=== PATIENT | male | born 1990 | race American Indian/Alaskan Native ===

== ENCOUNTER 2016-10-07 18:53 | Emergency (ER) | payer MEDICARE ==
[2016-10-07 18:54] VITALS: BMI 27.2
[2016-10-07 19:13] VITALS: PULSE 76; RESP 20; TEMP 97.6; O2SAT 99
[2016-10-07] MEDS ORDERED: Oxycodone/Acetaminophen 5/325 mg Tab ONE (19:29)
[2016-10-07] MEDS ORDERED: Oxycodone/Acetaminophen 5/325 mg Tab PO STA (19:29)
--- NOTE | 2016-10-07 20:21 | ED PDOC ---
HPI: Back Time Seen by Provider: 10/07/16 19:14 Chief Complaint (Nursing): Back Pain Chief Complaint (Provider): Back pain History Per: Patient History/Exam Limitations: no limitations Onset/Duration Of Symptoms: Days (3x weeks), Worse Since (chronic back pain for years, worsened in the past 3 weeks) Current Symptoms Are (Timing): Still Present Severity: Moderate Previous Symptoms: Back Pain, Chronic Pain Associated Symptoms: New Numbness (radiates from right buttock down the side of his right leg) Exacerbating Factor(s): Movement (certain movements) Additional Complaint(s): 25 year old male with a pertinent medical history of chronic back pain presents to the ED with complaints of back pain that he has had for years, but has worsened in the past 3x weeks. He reports that the pain worsens with movement and is on the lower right side of his back, but radiates to his lower leg. A few years ago he had an MRI done and his MD said "something slipped to the side ". He also reports getting a new job recently that requires some heavy lifting and standing for long periods of time, which he isn't used to. He'd recently gone to his PMD last week, who gave him a referral to an orthopedic office but he hadn't gone. He's been taking alieve with no relief. He denies having a fever, recent weight loss, trauma, injury, bowel incontinence, and urine incontinence. PMD: Eddie Riley MD Past Medical History Reviewed: Historical Data, Nursing Documentation, Vital Signs Vital Signs: Last Vital Signs Temp 97.6 F 10/07/16 19:12 Pulse 76 10/07/16 19:12 Resp 20 10/07/16 19:12 BP 167/117 H 10/07/16 19:12 Pulse Ox 99 10/07/16 19:12 - Medical History PMH: HTN - Surgical History Surgical History: No Surg Hx - Family History Family History: States: Hypertension - Social History Current smoker - smoking cessation education provided: Yes - Immunization History Hx Tetanus Toxoid Vaccination: No Hx Influenza Vaccination: No Hx Pneumococcal Vaccination: No - Home Medications Home Medications: Ambulatory Orders Medication Instructions Recorded Phenazopyridine [Phenazopyridine 200 mg PO TID #6 tab 04/04/16 HCl] Cyclobenzaprine [Flexeril] 5 mg PO Q8 PRN #10 tab 10/07/16 Ibuprofen [Motrin Tab] 600 mg PO Q8 PRN #60 tab 10/07/16 Lisinopril [Zestril] 20 mg PO DAILY #30 tab 10/07/16 oxyCODONE/Acetaminophen [Percocet 1 tab PO QID PRN #12 tab 10/07/16 5/325 mg Tab] - Allergies Allergies/Adverse Reactions: Allergies Allergy/AdvReac Type Severity Reaction Status Date / Time No Known Allergies Allergy Verified 04/04/16 20:01 Review of Systems ROS Statement: Except As Marked, All Systems Reviewed And Found Negative Constitutional: Negative for: Fever, Weight loss, Other (injury, trauma) Genitourinary Male: Negative for: Incontinence Musculoskeletal: Positive for: Back Pain (lower right), Leg Pain (right) Physical Exam - Reviewed Nursing Documentation Reviewed: Yes Vital Signs Reviewed: Yes - Physical Exam Appears: Positive for: Well, Non-toxic, In Acute Distress (mild painful distress ) Head Exam: Positive for: ATRAUMATIC, NORMOCEPHALIC Skin: Positive for: Normal Color, Warm, Dry Neck: Positive for: Normal (no tenderness), Painless ROM Gastrointestinal/Abdominal: Positive for: Normal Exam, Soft. Negative for: Tenderness, Mass, Distended, Guarding, Rebound Back: Positive for: Vertebral Tenderness, Other (tenderness to palpation lower lumbar spine and midline right paraspinal. no stepoff, no crepitus. possible right straight leg testing). Negative for: Decreased ROM, Muscle Spasm Extremity: Positive for: Other (no saddle anesthesia, decreased leg touch latera leg. normal strength of legs). Negative for: Pedal Edema, Calf Tenderness Neurologic/Psych: Positive for: Alert, Oriented (3x), Gait (steady) - ECG O2 Sat by Pulse Oximetry: 99 (RA) Pulse Ox Interpretation: Normal Medical Decision Making Medical Decision Makin:14 Initial impression: 25 year old male patient with lower lumbar back pain, no signs of cauda equina Initial plan: * flexeril 10mg PO * percocet (5/325mg tab) 1 tab PO * toradol 30mg IM * reevaluation On reeval pt slightly improved. Pt has markedly elevated BP and reports it has been 3 days since taking medications because he ran out. Dose of lisinopril given in ER and rx written. Stressed importance of taking medication Pt discharged and advised to f/u ortho as directed by PMD. Medications prescribed for pain control, including narcotic meds. DW pt risk of these medications and cautioned about dependence, addition, and overdose. Scribe Attestation: Documented by Millie Caceres, acting as a scribe for Giselle Bai MD. Provider Scribe Attestation: All medical record entries made by the Scribe were at my direction and personally dictated by me. I have reviewed the chart and agree that the record accurately reflects my personal performance of the history, physical exam, medical decision making, and the department course for this patient. I have also personally directed, reviewed, and agree with the discharge instructions and disposition. Disposition - Clinical Impression Clinical Impression: Back pain - Disposition Referrals: [facility] [Outside] Jed Price MD [Staff Provider] - 10/08/16 (CALL THE ORTHOPEDIST TOMORROW MORNING TO SCHEDULE FOLLOW UP APPOINTMENT WITHIN A WEEK.) Disposition: Routine/Home Disposition Time: 20:00 Condition: IMPROVED Prescriptions: Cyclobenzaprine [Flexeril] 5 mg PO Q8 PRN #10 tab PRN Reason: muscle spasm Ibuprofen [Motrin Tab] 600 mg PO Q8 PRN #60 tab PRN Reason: Pain, Moderate (4-7) oxyCODONE/Acetaminophen [Percocet 5/325 mg Tab] 1 tab PO QID PRN #12 tab PRN Reason: Pain Lisinopril [Zestril] 20 mg PO DAILY #30 tab Instructions: Narcotic Pain Management (ED), Lumbar Radiculopathy (ED) Forms: [facility] ED School/Work Excuse
[2016-10-07 22:43] VITALS: BP 179/100
== END 2016-10-07 21:40 | disposition home or self-care (01) ==
LOC: H.ER 18:53
DX: M54.9 Dorsalgia, unspecified (principal); I10 Essential (primary) hypertension; G89.29 Other chronic pain
CPT/HCPCS: 96372; 99282; J1885